=== PATIENT | female | born 1985 | race Caucasian/White ===

== ENCOUNTER 2017-03-21 13:28 | Emergency (ER) | payer OTHER ==
[~2017-03-21] VITALS: Ht 165.1 cm; Wt 72.5 kg
[~2017-03-21 13:28] MED LIST: TYLE3 PO; Z.0.NO CURRENT MEDS
[2017-03-21 13:30] VITALS: BP 159/97; PULSE 82; RESP 17; TEMP 98.3; O2SAT 97
[2017-03-21] MEDS ORDERED: MIRA33504 PO (14:13)
--- NOTE | 2017-03-21 14:14 | PD ---
HPI Chief Complaint: GI Complaint Time Seen by Provider: 14:07 Travel History International Travel<30 days: No Contact w/Intl Traveler<30days: No Traveled to known affect area: No History of Present Illness HPI 31-year-old female presents to the emergency department for evaluation of bright red blood per her rectum yesterday. Patient states she has been constipated. She has a history of the same. She used a suppository yesterday and ate some greens on Tuesday. She states that yesterday, she tried to go the bathroom and noticed some bright red blood when she wiped. She states she had a large bowel movement today and is feeling better. She denies any rectal bleeding today. She does report a history of irritable bowel syndrome and appendectomy. She reports history of chronic abdominal pain. She denies any fevers or chills. She currently takes no prescribed medications. She denies any alcohol, tobacco, drug use. PFSH Past Medical History Gastrointestinal Disorders: Yes (IBS/CHRONIC CONSTIPATION ) Tetanus Vaccination: < 5 Years Influenza Vaccination: No ?: Not LMP: 02/27/17 : 0 Para: 0 Miscarriage: 0 : 0 Past Surgical History Appendectomy: Yes Social History Alcohol Use: No Tobacco Use: No (< 1 PPD) Substance Use: No Allergies-Medications (Allergen,Severity, Reaction): Coded Allergies: No Known Allergies (Verified , 03/21/17) Reported Meds & Prescriptions Reported Meds & Active Scripts Active No Active Prescriptions or Reported Medications Review of Systems Except as stated in HPI: all other systems reviewed are Neg Physical Exam Narrative GENERAL: Well-nourished, well-developed female patient, ambulatory. Afebrile. SKIN: Focused skin assessment warm/dry. HEAD: Normocephalic. EYES: No scleral icterus. No injection or drainage. NECK: Supple, trachea midline. No JVD or lymphadenopathy. CARDIOVASCULAR: Regular rate and rhythm without murmurs, gallops, or rubs. RESPIRATORY: Breath sounds equal bilaterally. No accessory muscle use. Lungs sounds are clear to auscultation. GASTROINTESTINAL: Abdomen soft, non-tender, nondistended. MUSCULOSKELETAL: No cyanosis, or edema. RECTAL EXAM: No masses or tenderness, stool is brown. Hemoccult is negative. This exam was done with MARYCARMEN Freeman at bedside. Data Data Last Documented VS Vital Signs Date Time Temp Pulse Resp B/P Pulse Ox O2 Delivery O2 Flow Rate FiO2 03/21/17 14:00 18 03/21/17 13:30 98.3 82 159/97 97 MDM Medical Decision Making Medical Screen Exam Complete: Yes Emergency Medical Condition: Yes Medical Record Reviewed: Yes Differential Diagnosis Constipation versus chronic abdominal pain versus hematochezia Narrative Course 31-year-old female presents to the emergency department for evaluation of bright red blood when she wiped yesterday after trying to have a bowel movement. Patient appears well on exam. She states she was able to have a large bowel movement today. She reports history of chronic abdominal pain and constipation. Physical exam is reassuring. No abdominal pain on palpation. Hemoccult is negative. Patient is instructed to follow-up with her die setter. She is to return for any acute worsening of symptoms. She verbalizes agreement and understanding to this plan. I discussed the case with my attending physician, Dr. Koroma, who agrees with plan and disposition. The patient was discharged in stable condition with instructions, including return instructions and follow up instructions. [facility] Point of Care Internal Pos. & Neg. Controls: Passed Fecal Specimen Occult Blood: Negative Diagnosis Primary Impression: Constipation Qualified Code: K59.00 - Constipation, unspecified constipation type Referrals: Gis Specialist call for appointment Patient Instructions: Constipation (ED), General Instructions Additional Instructions: High fiber diet. Drink plenty of water. Miralax as needed for constipation. Follow up with a die setter. Return to the emergency department for any acute, worsening of symptoms. Med/Other Pt SpecificInfo: Prescription(s) given Scripts Polyethylene Glycol 3350 Powder (Miralax Powder)17 Gm Powd17 Gm PO DAILY PRN ( CONSTIPATION) #1 BOTTLE Ref 0 Mix and dissolve one measuring cap-ful (17 grams) in water or juice. Prov:Savanah Perez 03/21/17 Disposition: 01 DISCHARGE HOME Condition: Stable Savanah Perez March 21, 2017 14:14
== END 2017-03-21 14:42 | disposition home or self-care (01) ==
LOC: NEPD 13:28
DX: K59.00 Constipation, unspecified (principal)
CPT/HCPCS: 99282